=== PATIENT | female | born 1995 | race Caucasian/White ===

== ENCOUNTER 2021-12-10 20:00 | Emergency (ER) | payer BC ==
[~2021-12-10] VITALS: Ht 152.4 cm; Wt 59.0 kg
--- NOTE | 2021-12-10 21:26 | NUR ---
BIBS C/O FEVER AND MID CP X FEW HOURS. IBUPROFEN CHARGE ACCOUNT CLERK. PATIENT ALERT AND ORIENTED X3. AMBULATORY WITH NON LABORED BREATHING IN BED 16 ON MONITOR AND POX AWAITING MD BULLOCK.
[2021-12-10] MEDS ORDERED: ACETAMINOPHEN ES 500 MG TABLET ONE (21:58)
[2021-12-10] MEDS ORDERED: LORAZEPAM INJ 2 MG/ML VIAL ONE (21:58)
[2021-12-10] MEDS ORDERED: IV NS 0.9% 1,000 ML BAG IV ONE (22:00)
[2021-12-10] MEDS ORDERED: LORAZEPAM INJ 2 MG/ML VIAL IV ONE (22:00)
[2021-12-10] MEDS ORDERED: ACETAMINOPHEN ES 500 MG TABLET PO ONE (22:00)
--- NOTE | 2021-12-10 22:00 | NUR ---
IV LINE ESTABLISHED, RAC 18G. BLOOD COLLECTED AND SENT TO LAB
--- NOTE | 2021-12-10 22:27 | NUR ---
COVID ANTIGEN SWAB COLLECTED AND SENT OT LAB
[2021-12-10 22:47] LABS: BASOPHILS % (AUTO) 0.5 % (0.0-2.0); EOSINOPHILS % (AUTO) 0.1 % (0.0-6.0); HEMATOCRIT 36 % (33-45); HEMOGLOBIN 11.9 g/dL (11.5-14.8); LYMPHOCYTES # (AUTO) 0.3 K/uL (0.8-4.8); LYMPHOCYTES % (AUTO) 4.8 % (20.0-44.0); MEAN CORPUSCULAR HGB CONC 33 g/dl (31.0-36.0); MEAN CORPUSCULAR VOLUME 82 fL (82-100); MONOCYTES % (AUTO) 15.9 % (2.0-12.0); NEUTROPHILS # (AUTO) 5.1 K/uL (1.8-8.9); NEUTROPHILS % (AUTO) 78.7 % (43.0-81.0); PLATELET COUNT (AUTO) 290 K/uL (150-450); RED BLOOD CELL COUNT(AUTO) 4.38 MIL/uL (4.0-5.2); WHITE BLOOD COUNT (AUTO) 6.4 K/uL (4.3-11.0)
--- NOTE | 2021-12-10 23:00 | NUR ---
PT AMBULATED TO THE BATHROOM, STEADY GAIT NOTED
[2021-12-10 23:02] LABS: CALCIUM, SERUM 9.2 mg/dL (8.5-10.1); CARBON DIOXIDE 24 mmol/L (21-32); CHLORIDE 100 mmol/L (98-107); CREATININE 1.1 mg/dL (0.6-1.3); GLUCOSE 92 mg/dL (74-106); POTASSIUM 3.5 mmol/L (3.5-5.1); SODIUM SERUM 134 mmol/L (136-145); UREA NITROGEN, BLOOD 9 mg/dL (7-18)
--- NOTE | 2021-12-10 23:14 | NUR ---
ULTRASOUND AT BEDSIDE
[2021-12-10 23:15] LABS: ALANINE AMINOTRANSFERASE 16 U/L (12-78); ALBUMIN 4.1 g/dL (3.4-5.0); ALKALINE PHOSPHATASE 59 U/L (46-116); ASPARTATE AMINOTRANSFERASE 15 U/L (15-37); BILIRUBIN,DIRECT 0.1 mg/dL (0.0-0.2); BILIRUBIN,TOTAL 0.2 mg/dL (0.2-1.0); TOTAL PROTEIN, SERUM 7.7 g/dL (6.4-8.2)
[2021-12-11] MEDS ORDERED: CEFTRIAXONE 1 G in IV D5W 50 ML IV ONE ×2
[2021-12-11] MEDS ORDERED: CEFU500T66 PO (00:37)
[2021-12-11] MEDS ORDERED: DOXY100C2 PO (00:37)
--- NOTE | 2021-12-11 00:40 | NUR ---
RHOGAM ADMINISTERED AT 0040
[2021-12-11] MEDS ORDERED: CEFTRIAXONE 1GM BAG (ER ONLY) 50 ML IV ONE (00:41)
--- NOTE | 2021-12-11 01:59 | NUR ---
PT RESTING COMFORTABLY IN BED, ASLEEP BUT EASILY AROUSABLE
--- NOTE | 2021-12-11 04:49 | NUR ---
IV removed. Catheter intact and site benign. Pressure and 4x4 applied to site. No bleeding noted.
--- NOTE | 2021-12-11 04:50 | NUR ---
Patient discharged to home in stable condition. Written and verbal after care instructions given. Patient verbalizes understanding of instruction.
[2021-12-11 04:51] VITALS: BP 125/70
[2021-12-11 08:25] LABS: LYMPHOCYTES % (MANUAL) 7 % (16-48); MONOCYTES % (MANUAL) 7 % (0-11.0); NEUTROPHILS % (MANUAL) 86 (42-76)
== END 2021-12-11 04:52 | disposition home or self-care (01) ==
LOC: ER 20:12
DX: O07.37 Sepsis following failed attempted termination of pregnancy (principal); A41.9 Sepsis, unspecified organism; F41.0 Panic disorder [episodic paroxysmal anxiety]; O99.330 Smoking (tobacco) complicating pregnancy, unspecified trimester; O26.899 Other specified pregnancy related conditions, unspecified trimester; Z67.11 Type A blood, Rh negative; Z20.822 Contact with and (suspected) exposure to COVID-19; F17.290 Nicotine dependence, other tobacco product, uncomplicated
CPT/HCPCS: 36415; 71045; 76856; 80048; 80076; 83605; 84145; 84484; 84702; 85007; 85025; 85730; 87040 ×2; 87426; 93005; 96361; 96365; 96372; 96375; 99285; 99406; C9803; J0696; J2060; J2790; J7060